=== PATIENT | male | born 1980 | race African-American/Black ===

== ENCOUNTER 2019-07-10 08:46 | Emergency (ER) | payer OTHER ==
[~2019-07-10] VITALS: Ht 172.7 cm; Wt 131.5 kg
[~2019-07-10 08:46] MED LIST: MOTRIN800 MG PO; NAPROSYN500 MG PO; PENICILLIN VK500 MG PO; Peridex 473 ML473 ML PO; VOLTAREN50 M1 PO
[2019-07-10] MEDS ORDERED: MIRALAX POWDER17 G1 PO (09:30)
== END 2019-07-10 09:33 | disposition home or self-care (01) ==
LOC: ED 08:46
DX: K59.00 Constipation, unspecified (principal); Z79.2 Long term (current) use of antibiotics; Z79.899 Other long term (current) drug therapy

== ENCOUNTER 2020-07-08 12:11 | Emergency (ER) | payer OTHER ==
[~2020-07-08] VITALS: Ht 172.7 cm; Wt 131.5 kg
[~2020-07-08 12:11] MED LIST changes: +MIRALAX POWDER17 G1 PO
[2020-07-08 12:50] LABS: BASO % 0.3 % (0.0-1.0); EOS # 0.2 10*3/uL (0.0-0.4); EOS % 2.8 % (1.0-4.0); HEMATOCRIT 41.7 % (42.0-52.0); LYMPH % 44.7 % (27.0-41.0); MEAN CELL VOLUME 95.6 fl (80.0-94.0); MEAN CORPUSCULAR HGB 31.7 pg (27.0-31.0); MEAN CORPUSCULAR HGB CONC 33.1 g/dl (33.0-37.0); MEAN PLATELET VOLUME 10.5 fl (9.6-12.3); MONO # 0.5 10*3/uL (0.1-1.0); MONO % 7.2 % (3.0-9.0); NEUT # 3.1 10*3/uL (2.3-7.9); NEUT % 44.9 % (47.0-73.0); PLATELET COUNT AUTOMATED 230 10*3/uL (130-400); RED BLOOD COUNT 4.36 10*6/uL (4.50-5.90); RED CELL DISTRI WIDTH 11.3 % (0-14.5); WHITE BLOOD COUNT 6.8 10*3/uL (4.8-10.8)
[2020-07-08 13:00] LABS: ACT PARTIAL THROMBO TIME 28.8 SECONDS (20.0-32.1)
[2020-07-08 13:06] LABS: ALBUMIN 3.5 gm/dl (3.1-4.5); ALKALINE PHOSPHATASE 71 U/L (45-117); BUN 11 mg/dl (7-24); CHLORIDE 106 mmol/L (98-107); CREATININE 1.12 mg/dL (0.70-1.30); POTASSIUM 4.1 mmol/L (3.5-5.1); SGOT/AST 29 IU/L (3-35); SGPT/ALT 51 U/L (12-78); SODIUM 137 mmol/L (136-145); TOTAL PROTEIN 7.8 gm/dL (6.4-8.2)
[2020-07-08 13:19] LABS: TROPONIN I < 0.015 ng/ml (<0.045)
== END 2020-07-08 15:31 | disposition home or self-care (01) ==
LOC: ED 12:11
PROVIDERS: Emergency Medicine
DX: R07.89 Other chest pain (principal); K29.60 Other gastritis without bleeding; Z79.899 Other long term (current) drug therapy; Z79.2 Long term (current) use of antibiotics

== ENCOUNTER 2021-02-22 22:11 | Emergency (ER) | payer OTHER ==
[~2021-02-22] VITALS: Ht 172.7 cm; Wt 136.1 kg
[2021-02-23] MEDS ORDERED: TESSALON PERLE100 MG PO (06:47)
== END 2021-02-23 07:15 | disposition home or self-care (01) ==
LOC: ED 22:11
DX: U07.1 COVID-19 (principal); J06.9 Acute upper respiratory infection, unspecified

== ENCOUNTER 2024-10-12 16:52 | Emergency (ER) | payer OTHER ==
[~2024-10-12] VITALS: Ht 175.2 cm; Wt 136.1 kg
[~2024-10-12 16:52] MED LIST changes: +TESSALON PERLE100 MG PO
[2024-10-12 17:38] LABS: BASO % 0.3 % (0.0-1.0); EOS # 0.4 10*3/uL (0.0-0.4); HEMATOCRIT 39.8 % (42.0-52.0); MEAN CELL VOLUME 93.4 fl (80.0-94.0); MEAN CORPUSCULAR HGB 31.5 pg (27.0-31.0); MEAN CORPUSCULAR HGB CONC 33.7 g/dl (33.0-37.0); MEAN PLATELET VOLUME 9.2 fl (9.6-12.3); MONO # 0.5 10*3/uL (0.1-1.0); MONO % 7.4 % (3.0-9.0); NEUT # 3.1 10*3/uL (2.3-7.9); NEUT % 41.9 % (47.0-73.0); PLATELET COUNT AUTOMATED 193 10*3/uL (130-400); RED BLOOD COUNT 4.26 10*6/uL (4.50-5.90); RED CELL DISTRI WIDTH 11.4 % (0-14.5); WHITE BLOOD COUNT 7.3 10*3/uL (4.8-10.8)
[2024-10-12] MEDS ORDERED: methylPREDNISolone sod succ 125 MG VIAL IM ONE (17:45)
[2024-10-12] MEDS ORDERED: Albuterol Sulf/Ipratropium 3 ML VIAL NEB ONE (17:45)
[2024-10-12 17:51] LABS: BUN 13 mg/dl (9-23); CHLORIDE 104 mmol/L (98-107)
[2024-10-12] MEDS ORDERED: MEDROL DOSEPAK4 MG PO (18:10)
[2024-10-12] MEDS ORDERED: AVPAK AZITHROM250 MG PO (18:10)
== END 2024-10-12 18:40 | disposition home or self-care (01) ==
LOC: ED 16:52
PROVIDERS: Internal Medicine
DX: J40 Bronchitis, not specified as acute or chronic (principal); Z79.899 Other long term (current) drug therapy